=== PATIENT | female | born 1945 | race Caucasian/White ===

== ENCOUNTER → 2017-05-13 | Outpatient (CLI) | payer MEDICARE ==
[~2017-05-13] MED LIST: ALB2.5NEB INH; BACT800T5 PO; COZA50TA PO; DULO1CAP3 PO; FLUC10TA PO; HYDR25TAB PO; IPRASOL4 NEB; LEVA750T7 PO; LOSA100T5 PO; METF10004 PO; NICO21PAT TD; OMEP10CASR PO; PRED20TAB PO; PROAAER10 INH; VYTO10TA18 PO; [UNRECOGNIZED DRUG - CODE] PO
[2017-05-13 17:51] LABS: INR 0.9
[2017-05-13 19:22] LABS: ALBUMIN/GLOBULIN RATIO 1.05 (1.00-1.93); ALKALINE PHOSPHATASE 97 U/L (45-117); ALT/SGPT 36 U/L (12-78); AST/SGOT 20 U/L (15-37); BILIRUBIN,DIRECT 0.1 MG/DL (0.0-0.2); BILIRUBIN,TOTAL 0.6 MG/DL (0.2-1.0); GAMMA GLUTAMYLTRANSPEPTIDASE 52 U/L (5-55); PERCENT SATURATION 22.2 % (13.2-37.4); TOTAL IRON BINDING CAPACITY 343 UG/DL (250-450); TOTAL PROTEIN 7.8 GM/DL (6.4-8.2)
== END ==
LOC: M LAB 15:29
PROVIDERS: ATTEND Internal Medicine Gastroenterology
DX: R74.8 Abnormal levels of other serum enzymes (principal)

== ENCOUNTER → 2017-05-17 | Outpatient (CLI) | payer MEDICARE ==
--- NOTE | 2017-05-17 09:18 | REP ---
Abdominal right upper quadrant ultrasound: Comparison is 12/10/2009. There is a negative Nunes's sign to transducer pressure. There is no cholelithiasis, gallbladder wall thickening or pericholecystic fluid. There is no intrahepatic or extrahepatic biliary duct dilatation, the common duct measures 2.4 mm in diameter. There is mild hepatic parenchymal echogenicity compatible with hepato steatosis. There are no focal hepatic masses. The visualized portion of the pancreatic head is unremarkable. The body and tail are obscured by bowel gas. There is no right renal calculus, mass, or hydronephrosis. There are multiple right renal cysts and the largest measuring up to 1.5 cm. There is no free fluid. Impression: Essentially negative abdominal right upper quadrant ultrasound except for mild hepato steatosis. The body and tail of the pancreas are obscured by bowel gas. There are multiple small right renal cysts. Signed by Tyler Vines MD 05/17/2017 09:09 A
== END ==
LOC: M RAD 08:23
PROVIDERS: ATTEND Internal Medicine Gastroenterology
DX: R74.8 Abnormal levels of other serum enzymes (principal); N28.1 Cyst of kidney, acquired

== ENCOUNTER → 2017-06-01 | Outpatient (CLI) | payer MEDICARE ==
--- NOTE | 2017-06-01 09:12 | PFTRPT ---
Tech: Johanna SCHNEIDER RRT Age: 71 Sex: Female Race: Height: 61.50 Inches Weight: 145.00 Lbs BSA: 1.66 Diagnosis: J43.2 PULMONARY FUNCTION REPORT ORDERING PROVIDER: Juve Aldana DO DATE OF SERVICE: 06/01/17 SPIROMETRY: Pre and post bronchodilator study of excellent technical quality. The forced vital capacity is reduced. The FEV1 is out of proportion. The obstructive index is, therefore, reduced. FLOW VOLUME LOOP: The expiratory limb of the flow volume loop is consistent with airflow limitation. Significant bronchodilator response is identified. LUNG VOLUMES: The total lung capacity is mildly elevated. The residual volume does suggest air trapping. DIFFUSION CAPACITY: The diffusion capacity, although reduced, is appropriate for alveolar volume. HEMOGLOBIN: The hemoglobin is acceptable at 12.7. AIRWAY MECHANICS: Airways resistance and conductance are normal. IMPRESSION: Mild to moderate obstructive ventilatory impairment with underlying air trapping. Favorable bronchodilator response. Please correlate clinically. MTDD
== END ==
LOC: M CARPUL 08:15
PROVIDERS: ATTEND Internal Medicine Pulmonary Disease
DX: J43.2 Centrilobular emphysema (principal)

== ENCOUNTER → 2017-11-17 | Outpatient (CLI) | payer MEDICARE | LOC: M RAD 12:48 | DX: Z12.2 Encounter for screening for malignant neoplasm of respiratory organs (principal); R91.8 Other nonspecific abnormal finding of lung field; F17.210 Nicotine dependence, cigarettes, uncomplicated; J43.2 Centrilobular emphysema | CPT/HCPCS: G0297 ==

== ENCOUNTER 2018-06-15 07:45 | Day surgery (SDC) | payer MEDICARE ==
[2018-06-15] MEDS: NS 1,000 ML IV (08:00)
[2018-06-15] MEDS ORDERED: PROPOFOL 500 MG/50 ML VIAL As Ordered (09:26)
[2018-06-15] MEDS ORDERED: LIDOCAINE 2% INJ 100 MG/5 ML SDV (FOR ANES.) As Ordered (09:26)
[2018-06-15] MEDS ORDERED: fentaNYL 100 MCG/2 ML INJECTION (J3010) As Ordered (09:26)
[2018-06-15] MEDS ORDERED: ALBUTEROL SULFATE 2.5 MG/0.5 ML INH NEB SOLN As Ordered (10:41)
[2018-06-15] MEDS ORDERED: PROPOFOL 200 MG/20 ML VIAL As Ordered (10:53)
== END 2018-06-15 12:05 | disposition home or self-care (01) ==
LOC: M OPP 07:45
DX: Z12.11 Encounter for screening for malignant neoplasm of colon (principal); D12.5 Benign neoplasm of sigmoid colon; D12.4 Benign neoplasm of descending colon; D12.3 Benign neoplasm of transverse colon; D12.2 Benign neoplasm of ascending colon; D12.0 Benign neoplasm of cecum; K64.0 First degree hemorrhoids; K57.30 Diverticulosis of large intestine without perforation or abscess without bleeding; R13.10 Dysphagia, unspecified; K29.70 Gastritis, unspecified, without bleeding; I10 Essential (primary) hypertension; E78.5 Hyperlipidemia, unspecified; E11.9 Type 2 diabetes mellitus without complications; K21.9 Gastro-esophageal reflux disease without esophagitis; R12 Heartburn; M06.9 Rheumatoid arthritis, unspecified; F41.9 Anxiety disorder, unspecified; F32.9 Major depressive disorder, single episode, unspecified; J44.9 Chronic obstructive pulmonary disease, unspecified; G47.00 Insomnia, unspecified; F17.210 Nicotine dependence, cigarettes, uncomplicated; Z88.8 Allergy status to other drugs, medicaments and biological substances; Z79.84 Long term (current) use of oral hypoglycemic drugs; Z79.899 Other long term (current) drug therapy
CPT/HCPCS: 45385

== ENCOUNTER → 2021-07-04 | Outpatient (CLI) | payer MEDICARE ==
[~2021-07-04] MED LIST changes: +ATOR1TAB19 PO; +BREO1INH INH; -DULO1CAP3 PO; +DULO1CAP6 PO; +HYDR-2541 PO; -HYDR25TAB PO; +IPRA0.00 NEB; -IPRASOL4 NEB; +NEXI40CA PO; +NICO21DI3 TD; -NICO21PAT TD; +TRAZ-252 PO; +TYLE500T78 PO
--- NOTE | 2021-07-04 11:38 | REP ---
INDICATION: SHORTNESS OF BREATH. COMPARISON: 03/05/2016 the latest prior TECHNIQUE: PA and lateral FINDINGS: The superior mediastinal structures are midline. The cardiac silhouette is unremarkable in size, shape, and position. The diaphragmatic surfaces of the lungs are regular, and the costophrenic angles are clear. The pulmonary david are clear. The imaged osseous structures are intact. IMPRESSION: There is no acute cardiopulmonary disease. <Electronically signed by Arie Ramos > 07/04/21 [id number]
--- NOTE | 2021-07-04 12:00 | REP ---
INDICATION: LOW BACK PAIN. COMPARISON: None. TECHNIQUE: Five views FINDINGS: There is a slight dextroconvex curve. Minimal bilateral marginal osteophytes are seen at every level. The pedicles appear to be intact bilaterally. There is moderate L5-S1 disc space narrowing and more mild posterior disc space narrowing at all other levels. Vertebral body height and alignment is within normal limits. Degenerative facet joint changes are seen bilaterally at every level. There is mild anterior lipping at every level. IMPRESSION: Chronic changes as described above. <Electronically signed by Arie Ramos > 07/04/21 [id number]
== END ==
LOC: M WUC 11:03
PROVIDERS: ATTEND Physician Assistant
DX: R06.02 Shortness of breath (principal); M51.37 Other intervertebral disc degeneration, lumbosacral region

== ENCOUNTER → 2021-11-05 | Outpatient (REF) | payer MEDICARE ==
[2021-11-05 17:21] LABS: C REACTIVE PROTEIN QUANTITATIV 0.85 MG/DL (0.00-0.30); RHEUMATOID FACTOR QUANT < 10.0 IU/ML (<15.0)
== END ==
LOC: M LAB REF 16:21
PROVIDERS: ATTEND Internal Medicine
DX: E78.2 Mixed hyperlipidemia (principal)

== ENCOUNTER → 2021-12-03 | Outpatient (CLI) | payer MEDICARE ==
[~2021-12-03] MED LIST changes: +GASTROGRAFIN SOLUTION 30ML (Q9963) As Ordered ONE; +ISOVUE-370 76% 100ML VIAL As Ordered ONE
== END ==
LOC: M RAD 12:11
PROVIDERS: ATTEND Internal Medicine
DX: N28.1 Cyst of kidney, acquired (principal); N20.1 Calculus of ureter; K57.90 Diverticulosis of intestine, part unspecified, without perforation or abscess without bleeding; R59.0 Localized enlarged lymph nodes; R91.1 Solitary pulmonary nodule
CPT/HCPCS: 71260; 74178; Q9963; Q9967

== ENCOUNTER → 2022-01-22 | Outpatient (CLI) | payer MEDICARE ==
[~2022-01-22] MED LIST changes: -GASTROGRAFIN SOLUTION 30ML (Q9963) As Ordered ONE; -ISOVUE-370 76% 100ML VIAL As Ordered ONE
== END ==
LOC: M WHC 12:43
PROVIDERS: ATTEND Internal Medicine
DX: Z12.31 Encounter for screening mammogram for malignant neoplasm of breast (principal); Z13.820 Encounter for screening for osteoporosis; M85.9 Disorder of bone density and structure, unspecified; Z78.0 Asymptomatic menopausal state

== ENCOUNTER → 2022-02-09 | Outpatient (REF) | payer MEDICARE ==
[2022-02-11 07:17] LABS: LDL DIRECT 100 mg/dL (0-99)
== END ==
LOC: M LAB REF 17:01
PROVIDERS: ATTEND Internal Medicine
DX: E78.5 Hyperlipidemia, unspecified (principal)

== ENCOUNTER → 2022-06-16 | Outpatient (REF) | payer MEDICARE ==
[2022-06-17 08:09] LABS: LDL DIRECT 90 mg/dL (0-99)
== END ==
LOC: M LAB REF 12:01
PROVIDERS: ATTEND Internal Medicine
DX: E78.5 Hyperlipidemia, unspecified (principal)

== ENCOUNTER → 2024-07-28 | Outpatient (REF) | payer MEDICARE ==
[~2024-07-28] MED LIST changes: -COZA50TA PO; +EZET-15 PO; +LOSA-528 PO; -VYTO10TA18 PO
== END ==
LOC: M LAB REF 16:16
PROVIDERS: ATTEND Internal Medicine
DX: D64.9 Anemia, unspecified (principal)